=== PATIENT | male | born 1965 | race Caucasian/White ===

== ENCOUNTER 2021-04-24 01:02 | Emergency (ER) | payer OTHER ==
[~2021-04-24] VITALS: Ht 180.3 cm; Wt 144.0 kg
[~2021-04-24 01:02] MED LIST: ALLO300T PO; HYDR-2145 PO; MONT10TA80 PO; VERA240C2 PO
[2021-04-24 01:15] VITALS: BP 99/76
--- NOTE | 2021-04-24 01:18 | PHYS DOC ---
Past History Past Medical History: Arthritis, GERD, Hypertension, Other Past Surgical History: Other Alcohol Use: Occasionally Drug Use: None Adult General Chief Complaint Chief Complaint: CHEST PAIN HPI HPI Patient is a 55-year-old male with a known ascending aortic aneurysm that was diagnosed by [facility] last week who presents with a chief complaint of centralized chest pain which started just before coming into the emergency department, 8 out of 10, sharp in nature with some mild nausea. States that he was outside putting some ice melt down, came into his house and started having the chest pain. States this was about 45 minutes ago. Denies any other recent traumas, travels, illness, fevers. Denies any numbness/weakness/tingling. Denies any trouble sitting, standing or walking. No anticoagulant use. Review of Systems Review of Systems Constitutional: Denies fever or chills [] Eyes: Denies change in visual acuity, redness, or eye pain [] HENT: Denies nasal congestion or sore throat [] Respiratory: Denies cough or shortness of breath [] Cardiovascular: No additional information not addressed in HPI [] GI: Denies abdominal pain, nausea, vomiting, bloody stools or diarrhea [] : Denies dysuria or hematuria [] Musculoskeletal: Denies back pain or joint pain [] Integument: Denies rash or skin lesions [] Neurologic: Denies headache, focal weakness or sensory changes [] Endocrine: Denies polyuria or polydipsia [] All other systems were reviewed and found to be within normal limits, except as documented in this note. Allergies Allergies Allergies Coded Allergies Type Severity Reaction Last Updated Verified No Known Drug Allergies 04/03/15 No Physical Exam Physical Exam Constitutional: Well developed, well nourished, no acute distress, diaphoretic. [] HENT: Normocephalic, atraumatic, bilateral external ears normal, oropharynx moist, no oral exudates, nose normal. [] Eyes: conjunctiva normal, no discharge. [] Neck: Normal range of motion, no tenderness, supple, no stridor. [] Cardiovascular:Heart rate regular rhythm, no murmur [] Lungs & Thorax: Bilateral breath sounds clear to auscultation [] Abdomen: Bowel sounds normal, soft, no tenderness, no masses, no pulsatile masses. [] Skin: Cool and diaphoretic no erythema, no rash. [] Back: No tenderness, no CVA tenderness. [] Extremities: No tenderness, no cyanosis, no clubbing, ROM intact, no edema. [] Neurologic: Alert and oriented X 3, normal motor function, normal sensory function, cranial nerves intact, able to sit stand and walk no focal deficits noted. [] Psychologic: Affect normal, judgement normal, mood normal. [] EKG EKG [] Radiology/Procedures Radiology/Procedures [] Heart Score C/O Chest Pain: Yes Risk Factors: Risk Factors: DM, Current or recent (<one month) smoker, HTN, HLP, family history of CAD, obesity. Risk Scores: Risk Factors: DM, Current or recent (<one month) smoker, HTN, HLP, family history of CAD, obesity. Course & Med Decision Making Course & Med Decision Making Patient is a 55-year-old male who presents with chest pain and known aortic aneurysm Patient arrives in what appears to be acute distress, pale, diaphoretic and hypotensive with narrow pulse pressure and pulse deficit on the right compared to the left radial 2 IVs placed immediately and sent to CT given history of thoracic aortic aneurysm. CT notable for Rizwan type a aortic dissection involving the ascending aorta through the arch and upper descending thoracic aorta with flap extension into the great vessels arising from the aortic arch with thrombotic occlusion of the right common carotid artery and thrombosis with high-grade stenosis of the left common carotid artery. Patient critically ill. Called and [facility] transfer lines to discuss patient. [facility] first to call back with cardiothoracic surgeon. Patient accepted to [facility] and urgently transferred with verbal understanding of transfer and admission to [facility] by patient and patient's . Critical care time 45 minutes. [] Dragon Disclaimer Dragon Disclaimer This electronic medical record was generated, in whole or in part, using a voice recognition dictation system. Departure Departure: Impression: Primary Impression: Aortic dissection Additional Impressions: Carotid artery occlusion Ascending aortic aneurysm Disposition: 02 [facility]ORT TERM [facility] Condition: STABLE Referrals: PCP,UNKNOWN (PCP) Problem Qualifiers SHAINA OLSON MD Apr 24, 2021 01:18
[2021-04-24] MEDS ORDERED: CONTRAST GIVEN. MC PRN (01:30)
[2021-04-24 01:53] LABS: BASO # 0.1 x10^3/uL (0.0-0.2); BASO % 1 % (0-3); EOS # 0.2 x10^3/uL (0.0-0.7); EOS % 2 % (0-3); HEMATOCRIT 49.7 % (39.0-53.0); LYMPH # 2.2 x10^3/uL (1.0-4.8); LYMPH % 24 % (24-48); MEAN CORPUSCULAR HEMOGLOBIN 31 pg (25-35); MEAN CORPUSCULAR HGB CONC 34 g/dL (31-37); MEAN CORPUSCULAR VOLUME 90 fL (79-100); MONO # 0.8 x10^3/uL (0.0-1.1); MONO % 9 % (0-9); NEUT # 5.9 x10^3uL (1.8-7.7); NEUT % 64 % (31-73); PLATELET COUNT 197 x10^3/uL (140-400); RED BLOOD COUNT 5.52 x10^6/uL (4.30-5.70); RED CELL DISTRIBUTION WIDTH 14.7 % (11.5-14.5); WHITE BLOOD COUNT 9.3 x10^3/uL (4.0-11.0)
[2021-04-24] MEDS ORDERED: IOHEXOL 350 MG/ML 100 ML VIAL. IV ONE (02:00)
--- NOTE | 2021-04-24 02:02 | RAD ---
CT angiography chest, abdomen and pelvis with contrast PQRS statement: CT scans at this facility use dose reduction including either automated exposure cont rol, iterative reconstructions, and /or weight based radiation dosing via mA and kV modification when appropriate to reduce radiation dose to as low as reasonably achievable. HISTORY: Chest pain, thoracic aortic aneurysm. Contrast 100 mL Omnipaque 350 intravenous contrast. 3-D MIP reconstructions of the arteries acquired Chest findings: There is a fusiform aneurysm of the ascending thoracic aorta diameter of 6.0 cm on th e coronal reconstructions. There is a Eufaula type A dissection involving the ascending aorta at the aortic root through the aortic arch down to the proximal descending thoracic aorta. The dissection f lap appears to terminate just above the aortic valve. The aortic arch diameter 3.5 cm. The descending thoracic aorta diameter is 2.5 cm. The innominate and left common carotid arteries have a common kirk gin from the aortic arch. The dissection flap at the aortic arch extends into the ostia of the vessel s arising from the aortic arch. The dissection flap extends into the right common carotid artery whic h is thrombosed and occluded at the lower neck. Dissection flap extends into the left common carotid artery with thrombosis of the false lumen resulting in high-grade stenosis greater than 90% of the co mpressed enhancing true lumen within the lower neck. Dissection flap extends into the left subclavian artery without thrombosis. No pericardial effusion. Heart size is normal. No pulmonary artery emboli . Esophagus unremarkable. There is an hematoma. No adenopathy in the chest. Trachea and bronchi are u nremarkable. No pulmonary opacities or pleural effusions. 4 mm solid nodule minor fissure image 100. Bones unremarkable. Abdomen findings: No aneurysm or dissection, severe stenosis or occlusion of the abdominal aorta, abd ominal arteries. Mild tortuosity of the infrarenal aorta. Bilateral renal cysts. Hyperdense liver may be fatty. Small gallstones. Adrenals, pancreas, spleen unremarkable. No obstruction or inflammation GI tract. Appendix is negative. Bilateral L5 spondylolysis defects and grade 1 anterolisthesis of L5 and L5-S1 disc disease with severe neural foraminal stenosis at L5-S1. Pelvis findings: Tortuosity moderate calcific likely iliac arteries no aneurysm, dissection, stenosis or occlusion. Bladder, prostate, rectum and bones are unremarkable. IMPRESSION: 1. Fusiform aneurysm ascending thoracic aorta with a diameter of 6.0 cm, and associated Eufaula type A thoracic aortic dissection involving the ascending aorta through the arch and upper descending tho racic aorta. Dissection flap extends into the great vessels arising from the aortic arch with thrombo tic occlusion of the right common carotid artery, and thrombosis with high-grade stenosis of the left common carotid artery, as described above. These features raise the risk of cerebrovascular accident . 2. No aneurysm or dissection of the abdominal aorta or iliac arteries. 3. 4 mm solid nodule right upper lobe abutting the minor fissure. Per Fleischner guidelines if the pa tient has factors for malignancy option CT follow-up in 12 months would be advised otherwise no follo w-up is necessary. FOR INTERNAL CODING PURPOSES Critical result: Findings discussed with SHAINA OLSON MD at 04/24/2021 1:48 AM. RESULT CODE: (C) Electronically signed by: Khurram Cantrell MD (04/24/2021 2:00 AM) [facility]
[2021-04-24 02:06] LABS: CALCIUM 9.9 mg/dL (8.5-10.1); CREATININE 1.1 mg/dL (0.7-1.3); GFR 69.2; POTASSIUM 3.2 mmol/L (3.5-5.1)
== END 2021-04-24 02:13 | disposition short-term general hospital (02) ==
LOC: ER 01:02
DX: I71.00 Dissection of unspecified site of aorta (principal); I65.29 Occlusion and stenosis of unspecified carotid artery; I71.2 Thoracic aortic aneurysm, without rupture; M19.90 Unspecified osteoarthritis, unspecified site; K21.9 Gastro-esophageal reflux disease without esophagitis; I10 Essential (primary) hypertension; Z20.822 Contact with and (suspected) exposure to COVID-19
CPT/HCPCS: 36415; 71275; 74174; 74175; 80048; 84484; 85025; 85379; 86850; 86900; 86901; 87426; 99285; C9803; Q9967; U0003